=== PATIENT | male | born 1960 | race African-American/Black ===

== ENCOUNTER 2018-03-05 09:57 | Emergency (ER) | payer MEDICAID, OTHER ==
[~2018-03-05] VITALS: Ht 162.6 cm; Wt 70.3 kg
[~2018-03-05 09:57] MED LIST: NORCO 5-325 TA1 EACH ORAL; PHENERGAN SUPP25 MG RECTAL; SEROQUEL100 MG ORAL; ZOFRAN4 MG ORAL
[2018-03-05] MEDS ORDERED: SIMVASTATIN5 MG ORAL (10:10)
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
[2018-03-05] MEDS ORDERED: Ketorolac 30mg Inj IV ONE (10:45)
[2018-03-05 11:48] VITALS: BP 160/109
[2018-03-05 12:02] LABS: APPEARANCE,URINE CLEAR; BILIRUBIN, URINE 1+ (NEGATIVE); COLOR,URINE BROWN; GLUCOSE, URINE (UA) NEGATIVE (NEGATIVE); KETONES,URINE 1+ (NEGATIVE); LEUKOCYTE ESTERASE ,URINE 1+ (NEGATIVE); NITRITE,URINE NEGATIVE (NEGATIVE); PH,URINE 5 (4.5-8.0); PROTEIN,URINE 3+ (NEGATIVE); UROBILINOGEN,URINE 1 MG/DL (0.0-1.0)
[2018-03-05 12:11] LABS: BASOPHILS % (AUTO) 0.8 % (0.0-2.0); EOSINOPHILS % (AUTO) 1.7 % (0.0-3.0); HEMATOCRIT 42.6 % (42.0-52.0); HEMOGLOBIN 14.4 G/DL (14.2-18.0); LYMPHOCYTES % (AUTO) 15.5 % (20.0-45.0); MEAN CORPUSCULAR VOLUME 100 FL (80-99); MONOCYTES % (AUTO) 8.1 % (1.0-10.0); PLATELET COUNT 274 K/UL (150-450); RED BLOOD COUNT 4.25 M/UL (4.70-6.10); RED CELL DISTRIBUTION WIDTH 11.7 % (11.6-14.8); WHITE BLOOD COUNT 6.6 K/UL (4.8-10.8)
[2018-03-05 12:25] LABS: ANION GAP 11 mmol/L (5-15); BLOOD UREA NITROGEN 11 mg/dL (7-18); CALCIUM 10.5 MG/DL (8.5-10.1); CARBON DIOXIDE 26 MMOL/L (21-32); CHLORIDE 99 MMOL/L (98-107); CREATININE 1.2 MG/DL (0.55-1.30); POTASSIUM 3.9 MMOL/L (3.5-5.1); SODIUM 136 MMOL/L (136-145)
[2018-03-05 12:30] LABS: ALANINE AMINOTRANSFERASE 28 U/L (12-78); ALBUMIN 3.7 G/DL (3.4-5.0); ALBUMIN/GLOBULIN RATIO 0.7 (1.0-2.7); ALKALINE PHOSPHATASE 107 U/L (46-116); ASPARTATE AMINO TRANSFERASE 14 U/L (15-37); BILIRUBIN,TOTAL 0.4 MG/DL (0.2-1.0); CREATINE KINASE 69 U/L (26-308)
--- NOTE | 2018-03-05 12:34 | Diagnostic Imaging Report ---
Indication: Dyspnea Comparison: February 12, 2014 A single view chest radiograph was obtained. Findings: Cardiomediastinal appearance is within normal limits for age. Pulmonary vascularity is appropriate. The diaphragmatic contour is smooth and costophrenic angles are sharp. No pleural effusions are identified. The bones are unremarkable. Impression: No acute findings
--- NOTE | 2018-03-05 12:34 | Diagnostic Imaging Report ---
Indication: Abdominal pain Comparison: None Single view of the abdomen obtained Findings: Bowel gas pattern is nonspecific. No mass, ectopic calcifications, or abnormal gas collections are identified. The bones are unremarkable. There is a moderate amount of stool in the right hemicolon. Bones are unremarkable. Impression: No acute findings
[2018-03-05 12:41] LABS: INR 1.1 (0.9-1.1)
[2018-03-05 13:18] VITALS: BP 175/111
[2018-03-05] MEDS ORDERED: NIFEDIPINE ER30 M2 ORAL (13:20)
[2018-03-05] MEDS ORDERED: PEPCID AC20 M2 PO (13:37)
[2018-03-05] MEDS ORDERED: IBUPROFEN600 MG ORAL (13:37)
[2018-03-05] MEDS ORDERED: TYLENOL325 MG ORAL (13:37)
[2018-03-05] MEDS ORDERED: PROCARDIA XL30 MG ORAL (13:41)
[2018-03-05 14:21] VITALS: BP 156/108
--- NOTE | 2018-03-07 22:31 | Cardiology Report ---
APPROVED REPORT EKG Measurement Heart [id number] Normal sinus rhythm Nonspecific T wave abnormality Abnormal ECG
== END 2018-03-05 14:23 | disposition left against medical advice (07) ==
LOC: EMR 10:31
DX: K85.90 Acute pancreatitis without necrosis or infection, unspecified (principal); S20.219A Contusion of unspecified front wall of thorax, initial encounter; Y04.2XXA Assault by strike against or bumped into by another person, initial encounter; Y92.9 Unspecified place or not applicable; I10 Essential (primary) hypertension
CPT/HCPCS: 36415; 71045; 74018; 80053; 80307; 80329; 81003; 82550; 83690; 84484; 85025; 85610; 85730; 93005; 96374; 96375; 99284; J1885; J2405; S0028

== ENCOUNTER 2019-09-01 12:07 | Emergency (ER) | payer MEDICAID ==
[~2019-09-01] VITALS: Ht 182.9 cm; Wt 59.0 kg
[~2019-09-01 12:07] MED LIST changes: +IBUPROFEN600 MG ORAL; +NIFEDIPINE ER30 M2 ORAL; +PEPCID AC20 M2 PO; +PROCARDIA XL30 MG ORAL; +SIMVASTATIN5 MG ORAL; +TYLENOL325 MG ORAL
[2019-09-01 12:37] VITALS: BP 120/70
--- NOTE | 2019-09-01 14:00 | Emergency Room Report ---
History of Present Illness General Chief Complaint: General Complaint Source: Medical Record Present Illness HPI 59-year-old male presents to the emergency department requesting removal of the air splint on his right ankle. Patient was here in the emergency department of days ago when he was diagnosed with a sprain after x-rays revealed no fractures. Patient habitually is requesting narcotic pain medications which is consistent with his behavior from his initial visit. Patient reported 0 out of 10 in severity pain during triage however during exam he is requesting Tylenol 3 or Vicodin. Patient denies any trauma or fall he denies swelling, erythema, warmth or bruising. Patient states that he did not follow-up with a primary care or an orthopedist. No other aggravating or relieving factors at this time. Allergies: Coded Allergies: NEFAZODONE (Verified Allergy, Unknown, 03/17/12) Patient History Past Medical History: see triage record Past Surgical History: none Pertinent Family History: none Reviewed Nursing Documentation: PMH: Agreed; PSxH: Agreed Nursing Documentation-PMH Hx Hypertension: Yes Review of Systems All Other Systems: negative except mentioned in HPI Physical Exam Vital Signs Date Time Temp Pulse Resp B/P (MAP) Pulse Ox O2 Delivery O2 Flow Rate FiO2 09/01/19 12:37 97.9 80 18 120/70 98 Room Air Sp02 EP Interpretation: reviewed, normal General Appearance: no apparent distress, alert, GCS 15, non-toxic Head: normocephalic, atraumatic Eyes: bilateral eye normal inspection, bilateral eye PERRL ENT: hearing grossly normal, normal voice Neck: full range of motion Respiratory: lungs clear, normal breath sounds, speaking full sentences Cardiovascular #1: regular rate, rhythm, no edema, normal capillary refill Cardiovascular #2: 2+ dorsalis pedis (R) Musculoskeletal: gait/station normal, normal range of motion, non-tender, other - Air splint on the right ankle. pt. ambulating without crutches. Neurologic: alert, oriented x3, responsive, motor strength/tone normal, sensory intact, normal gait, speech normal, grossly normal Psychiatric: judgement/insight normal Skin: normal color, normal inspection Medical Decision Making PA Attestation Dr. Ospina is my supervising Physician whom patient management has been discussed with. Diagnostic Impression: Primary Impression: Encounter for medical screening examination ER Course 59-year-old male presents to the emergency department requesting removal of the air splint on his right ankle. Patient was here in the emergency department of days ago when he was diagnosed with a sprain after x-rays revealed no fractures. Patient habitually is requesting narcotic pain medications which is consistent with his behavior from his initial visit. Patient reported 0 out of 10 in severity pain during triage however during exam he is requesting Tylenol 3 or Vicodin. Patient denies any trauma or fall he denies swelling, erythema, warmth or bruising. Patient states that he did not follow-up with a primary care or an orthopedist. No other aggravating or relieving factors at this time. Ddx considered but are not limited to: drug seeking, noncompliance with follow- up instructions, improved/resolved ankle sprain, new MSK injury just to name a few Vital signs: are WNL, pt. is afebrile H&PE are most consistent with request for splint removal, and narcotic seeking behavior. ORDERS: none required at this time, the diagnosis is clinical ED INTERVENTIONS: -Air splint on the right ankle was removed by RN -I do not identify an emergent condition at this time. With current presentation , pt. is stable for close outpatient follow up and conservative treatment. D/ w pt. to return promptly to ED with worsening or new symptoms.- Pt. verbalizes' understanding and agreement with proposed treatment plan. DISCHARGE: At this time pt. is stable for d/c to home. Will provide printed patient care instructions, and any necessary prescriptions. Care plan and follow up instructions have been discussed with the patient prior to discharge. Last Vital Signs Date Time Temp Pulse Resp B/P (MAP) Pulse Ox O2 Delivery O2 Flow Rate FiO2 09/01/19 12:42 79 16 Room Air 09/01/19 12:37 97.9 120/70 (87) 98 Status: improved Disposition: HOME, SELF-CARE Condition: Stable Scripts Acetaminophen* (TYLENOL EXTRA STRENGTH*) 500 Mg Tablet 500 MG ORAL Q6H PRN for Mild Pain/Temp > 100.5, #20 TAB 0 Refills Prov: Jeannette Polk 09/01/19 Referrals: [facility] Patient Instructions: Medical Screening Exam Additional Instructions: Take medications as directed. Follow up with a Primary Care Provider in 3-5 days, even if your symptoms have resolved. --Please review list of primary care clinics, if you do not already have a primary care provider Return sooner to ED if new symptoms occur, or current symptoms become worse. - Please note that this Emergency Department Report was dictated using [employer] airplane technology software, occasionally this can lead to erroneous entry secondary to interpretation by the dictation equipment. Jeannette Polk Sep 01, 2019 14:00
[2019-09-01] MEDS ORDERED: TYLENOL EXTRA500 MG ORAL (14:02)
== END 2019-09-01 14:15 | disposition home or self-care (01) ==
LOC: EMR 12:50
DX: S99.911D Unspecified injury of right ankle, subsequent encounter (principal); X58.XXXD Exposure to other specified factors, subsequent encounter; I10 Essential (primary) hypertension; Z88.8 Allergy status to other drugs, medicaments and biological substances
CPT/HCPCS: 99282